=== PATIENT | male | born 1985 | race Caucasian/White ===

== ENCOUNTER 2023-06-03 14:13 | Outpatient (REF) | payer MEDICARE, MEDICAID, SELFPAY ==
[2023-06-03 15:00] LABS: Abs Immature Grans 0.01 10^3/uL (0.0-0.06); Absolute Basophil Count 0.02 10^3/uL (0.0-0.2); Absolute Eosinophil Count 0.09 10^3/uL (0.0-0.7); Absolute Lymphocyte Count 2.35 10^3/uL (1.2-3.4); Absolute Monocyte Count 0.64 10^3/uL (0.1-0.8); Basophils % 0.3; Eosinophils % 1.4; HCT 47.5 % (40.0-50.0); HGB 16.4 g/dL (13.5-17.5); Immature Grans % 0.2; Lymphocytes % 36.1; MCH 29.9 pg (27.0-33.0); MCHC 34.5 % (32.0-36.0); MCV 87 fL (80-95); MPV 9.7 fL (8.0-11.0); Monocytes % 9.8; Neutrophils % 52.2; Platelet Count 204 10^3/uL (130-400); RBC 5.49 10^6/uL (4.36-5.78); RDW 13.4 % (11.8-14.1); RDW-SD 43.1 fL; WBC 6.51 10^3/uL (4.4-10.8)
[2023-06-03 15:12] LABS: ALT 81 U/L (16-63); AST 35 U/L (15-37); Albumin 3.9 g/dL (3.4-5.0); Alkaline Phosphatase 78 U/L (46-116); Anion Gap 6.8 mmol/L (3-11); BUN 16 mg/dL (7-18); Bilirubin, Total 0.6 mg/dL (0.2-1.0); CO2 30.2 mmol/L (21.0-32.0); CREATININE 1.3 mg/dL (0.70-1.30); Calcium 9.3 mg/dL (8.5-10.1); Calculated LDL 145 mg/dL (<100); Chloride 107 mmol/L (98-107); Cholesterol 217 mg/dL (<200); Estimated GFR 71.67 (mL/min/1.73m2); Glucose 93 mg/dL (74-106); HDL Cholesterol 32 mg/dL (40-60); Potassium 4.5 mmol/L (3.5-5.1); Sodium 144 mmol/L (136-145); Total Protein 7.3 g/dL (6.4-8.2); Triglyceride 204 mg/dL (<150)
[2023-06-06 12:14] LABS: HIV 1 RNA Qualitative Detected copies/mL (Undetected); HIV 1 RNA Quantitative 9350 copies/mL (Undetected)
== END 2023-06-03 14:14 | disposition home or self-care (01) ==
LOC: NCHCN 14:13
PROVIDERS: PCP Family Medicine; Visit Provider Family Medicine
DX: B20 Human immunodeficiency virus [HIV] disease (principal); E78.49 Other hyperlipidemia
CPT/HCPCS: 80053; 80061; 87536; 85025

== ENCOUNTER 2023-09-27 15:18 | Outpatient (REF) | payer MEDICARE, MEDICAID, SELFPAY ==
[2023-09-27 22:04] LABS: HCT 48.2 % (40.0-50.0); HGB 16.4 g/dL (13.5-17.5); MCH 28.8 pg (27.0-33.0); MCV 85 fL (80-95); MPV 9.8 fL (8.0-11.0); Platelet Count 225 10^3/uL (130-400); RBC 5.69 10^6/uL (4.36-5.78); RDW 14.1 % (11.8-14.1); RDW-SD 42.9 fL; WBC 6.94 10^3/uL (4.4-10.8)
[2023-09-27 22:13] LABS: Hemoglobin A1C 5.2 % (<5.7)
[2023-09-27 22:14] LABS: Calculated LDL 148 mg/dL (<100); Cholesterol 226 mg/dL (<200); HDL Cholesterol 32 mg/dL (40-60); Triglyceride 231 mg/dL (<150)
[2023-09-30 13:19] LABS: HIV 1 RNA Qualitative Detected copies/mL (Undetected); HIV 1 RNA Quantitative 31 copies/mL (Undetected)
== END 2023-09-27 15:19 | disposition home or self-care (01) ==
LOC: NCHCN 15:18
PROVIDERS: PCP Family Medicine; Visit Provider Family Medicine
DX: B20 Human immunodeficiency virus [HIV] disease (principal); E66.8 Other obesity; Z13.1 Encounter for screening for diabetes mellitus
CPT/HCPCS: 80061; 85027; 87536; 83036